=== PATIENT | female | born 2000 | race Caucasian/White ===

== ENCOUNTER 2021-08-19 16:07 | Inpatient (IN) | payer OTHER, MEDICAID, SELFPAY ==
[2021-08-19 16:16] VITALS: BP 130/82; PULSE 102; O2SAT 97
[2021-08-19 16:17] VITALS: BP 131/81; PULSE 94; RESP 16; TEMP 36.6; O2SAT 99; BMI 31.1
--- NOTE | 2021-08-19 16:22 | ED_ITS ---
HPI - Psych General Chief Complaint: Psychiatric Symptoms Stated Complaint: Section 12 SI Time Seen by Provider: 08/19/21 16:16 Source: EMS Mode of arrival: EMS Limitations: no limitations History of Present Illness HPI Narrative: 20 yo M to F transgender presented c/o depression,denies SI to me, I am been depressed all my life complaint: feels depressed Duration: constant History of same: Yes Relieving factors: none Exacerbating factors: none Associated symptoms: denies other symptoms Related Data Home Medications Medication Instructions Recorded Confirmed hydroxyzine HCl 10 mg tablet See Rx Instructions .Route 08/19/21 08/19/21 .COMPLEX PRN Anxiety oxcarbazepine 300 mg tablet 300 mg PO BEDTIME 08/19/21 08/19/21 prazosin 1 mg capsule 1 mg PO BEDTIME PRN Hypertension 08/19/21 08/19/21 Allergies Allergy/AdvReac Type Severity Reaction Status Date / Time peanut Allergy Severe Anaphylaxis Verified 08/19/21 16:17 Review of Systems Review of Systems: Yes all other systems are reviewed and are negative Constitutional: Constitutional: Reports no additional constitutional complaints Eyes: Eyes: Reports no additional eye complaints ENT: Reports system reviewed and no additional complaints, except as documented Respiratory: Respiratory: Reports no additional respiratory complaints Neurologic: Reports system reviewed and no additional complaints, except as documented Psychiatric: Psychiatric: Reports anxiety and Reports depression [facility] Past Medical History [facility] Narrative: depression Social History Social History Advance Directives: No Advance Directives Information Provided: No Physical Exam Vital Signs: Vital Signs: Last Vital Signs Temp 97.6 F 08/19/21 23:34 Pulse 55 08/19/21 23:34 Resp 16 08/19/21 23:34 BP 108/65 08/19/21 23:34 Pulse Ox 98 08/19/21 23:34 O2 Del Method 08/19/21 23:34 BMI result Body Mass Index 31.1 Const: General: cooperative, comfortable, no acute distress, well developed and alert Nutritional Appearance: average body habitus Orientation/consciousness: patient oriented x3 Limitations: no limitations HEENT: Head: Yes normal to inspection General nose exam: Normal external nose present Face and sinus: Yes normal facial exam Mouth: Normal oral and palatal mucosa present Throat: Yes posterior oropharynx normal Neck: Neck: Yes normal visual inspection, Yes full ROM and Yes no lymphadenopathy Thyroid: Thyroid normal Chest: Chest palpation & inspection: normal inspection of the chest Resp: Effort & Inspection: normal respiratory effort Auscultation: clear to auscultation bilaterally Cardio: Jugular venous distension: no JVD Rate: regular rate Rhythm: regular rhythm GI: Inspection: Yes normal to inspection Palpation (GI): Soft to palpation, not firm, nontender and no guarding Percussion: Yes normal to percussion Auscultation: normal bowel sounds : General: Yes no CVA tenderness Back/Spine/Pelvis: Back: no CVA tenderness Skin: General skin exam: no rashes or lesions noted, elasticity normal and turgor normal Lesions: no lesions Rashes: no rashes Neuro: General: patient oriented x3 Cranial nerves: Yes CN's II-XII intact bilaterally Cognition (Neuro): normal cognition Gait exam (Neuro): Normal gait present Motor exam (neuro): 5/5 motor strength present throughout Course Reevaluation(s) Reevaluation #1: signed out to Dr Salvador,bed search MDM - Psych Lab Data Result diagrams: 08/19/21 17:45 08/19/21 17:45 Labs: Lab Results 08/19/21 08/19/21 08/19/21 Range/Units 16:58 17:10 17:45 WBC 7.6 (4.8-10.8) X10*3/uL RBC 5.01 (4.20-5.50) X10*6/uL Hgb 13.3 (12.0-16.0) g/dl Hct 41.0 (37.0-47.0) % MCV 81.8 (80.0-98.0) fL MCH 26.5 L (27.0-33.0) pg MCHC 32.4 (31.0-35.0) g/dl RDW 12.6 (11.0-16.0) % Plt Count 349 (160-400) X10*3/uL MPV 8.8 L (9.4-12.3) fL Immature Gran % (Auto) 0.3 (0.0-0.4) % Neut % (Auto) 55.6 (45-73) % Lymph % (Auto) 35.5 (20-40) % [place] % (Auto) 7.1 (2-11) % Eos % (Auto) 1.0 (0-4) % Baso % (Auto) 0.5 (0-2) % Lymph # (Auto) 2.7 (1.2-4.9) X10*3/uL [place] # (Auto) 0.5 (0.1-1.2) X10*3/uL Eos # (Auto) 0.1 (0.0-0.4) X10*3/uL Baso # (Auto) 0.0 (0.0-0.2) X10*3/uL Abs Immat Gran (auto) 0.02 (0.00-0.03) X10*3/uL Absolute Neuts (auto) 4.3 (2.0-8.3) x10*3/uL Absolute Nucleated RBC 0.000 (0.0-0.012) X10*3/uL Nucleated RBC % (auto) 0.0 (0.0-0.2) /100WBC Sodium (135-145) mmol/L Potassium (3.3-5.1) mmol/L Chloride (96-108) mmol/L Carbon Dioxide (22-29) mmol/L Anion Gap (12-20) BUN (9-16) mg/dL Creatinine (0.5-1.4) mg/dL Estim Creat Clear Calc Estimated GFR Random Glucose (60-115) mg/dL Calcium (8.4-10.2) mg/dL Urine Opiates Screen Not Detected (Not Detect) Urine Fentanyl Screen Not Detected (Not Detect) Ur Barbiturates Screen Not Detected (Not Detect) Ur Phencyclidine Scrn Not Detected (Not Detect) Ur Amphetamines Screen Not Detected (Not Detect) U Benzodiazepines Scrn Not Detected (Not Detect) Urine Cocaine Screen Not Detected (Not Detect) U Marijuana (THC) Screen Not Detected (Not Detect) Ethyl Alcohol mg/dL COVID-19 (ELISA) Negative (Negative) COVID-19 Clin Com See Note 08/19/21 08/19/21 Range/Units 17:45 17:45 WBC (4.8-10.8) X10*3/uL RBC (4.20-5.50) X10*6/uL Hgb (12.0-16.0) g/dl Hct (37.0-47.0) % MCV (80.0-98.0) fL MCH (27.0-33.0) pg MCHC (31.0-35.0) g/dl RDW (11.0-16.0) % Plt Count (160-400) X10*3/uL MPV (9.4-12.3) fL Immature Gran % (Auto) (0.0-0.4) % Neut % (Auto) (45-73) % Lymph % (Auto) (20-40) % [place] % (Auto) (2-11) % Eos % (Auto) (0-4) % Baso % (Auto) (0-2) % Lymph # (Auto) (1.2-4.9) X10*3/uL [place] # (Auto) (0.1-1.2) X10*3/uL Eos # (Auto) (0.0-0.4) X10*3/uL Baso # (Auto) (0.0-0.2) X10*3/uL Abs Immat Gran (auto) (0.00-0.03) X10*3/uL Absolute Neuts (auto) (2.0-8.3) x10*3/uL Absolute Nucleated RBC (0.0-0.012) X10*3/uL Nucleated RBC % (auto) (0.0-0.2) /100WBC Sodium 139 (135-145) mmol/L Potassium 4.0 (3.3-5.1) mmol/L Chloride 105 (96-108) mmol/L Carbon Dioxide 24 (22-29) mmol/L Anion Gap 14 (12-20) BUN 9 (9-16) mg/dL Creatinine 0.77 (0.5-1.4) mg/dL Estim Creat Clear Calc 106.0 Estimated GFR > 60 Random Glucose 85 (60-115) mg/dL Calcium 9.4 (8.4-10.2) mg/dL Urine Opiates Screen (Not Detect) Urine Fentanyl Screen (Not Detect) Ur Barbiturates Screen (Not Detect) Ur Phencyclidine Scrn (Not Detect) Ur Amphetamines Screen (Not Detect) U Benzodiazepines Scrn (Not Detect) Urine Cocaine Screen (Not Detect) U Marijuana (THC) Screen (Not Detect) Ethyl Alcohol < 10 mg/dL COVID-19 (ELISA) (Negative) COVID-19 Clin Com Discharge Plan Discharge Clinical Impression: Depression Prescriptions: No Action prazosin 1 mg Capsule 1 mg PO BEDTIME PRN (Reason: Hypertension) oxcarbazepine 300 mg Tablet 300 mg PO BEDTIME hydroxyzine HCl 10 mg Tablet See Rx Instructions .ROUTE .COMPLEX PRN (Reason: Anxiety) Rx Instructions: Give 1/2 to 1 tablet (5 to 10mg) by mouth 3 times daily as needed for anxiety.
--- NOTE | 2021-08-19 16:48 | PC.NURSE ---
Changeover completed with security at bedside. Pt identifies using they/them pronouns, with preferred name: Erich . Pt asked to wear silicone breasts underneath their sports bra, and if possible, to keep their stuffed animal giraffe for comfort. Spoke with Junaid De Paz (therapeutic assistant) regarding this request. Pt agreed to have items examined, but can keep these two items in the room with them for comfort and gender identity. Pt prefers female staff whenever possible. Pt is calm/cooperative. Arrived to ED today with SI, self-harm yesterday by cutting themselves and was seen by a nurse. [facility] Admits SI, denies HI. Denies plan at this time, but has had past attempts. Ky's partner's name is Charan . spoke with patient upon arrival.
[2021-08-19 17:31] LABS: COVID-19 Test Negative (Negative); IDNOW Serial# 16C4AD1C
[2021-08-19 17:31] LABS: Amphetamine Screen Urine Not Detected (Not Detect); Barbiturates, Urine Not Detected (Not Detect); Benzodiazepines Screen Urine Not Detected (Not Detect); Cannabinoid Screen Urine Not Detected (Not Detect); Cocaine Screen Urine Not Detected (Not Detect); Fentanyl, urine Not Detected (Not Detect); Opiate Screen Urine Not Detected (Not Detect); Phencyclidine Screen Urine Not Detected (Not Detect)
[2021-08-19 17:51] LABS: MANUAL DIFF FLAG NO
[2021-08-19 17:58] LABS: Basophils Percent Auto 0.5 % (0-2); Eosinophils Absolute Auto 0.1 X10*3/uL (0.0-0.4); Hemoglobin 13.3 g/dl (12.0-16.0); Imm Gran Abs Auto 0.02 X10*3/uL (0.00-0.03); Imm Gran Pct Auto 0.3 % (0.0-0.4); Lymphocytes Absolute Auto 2.7 X10*3/uL (1.2-4.9); Lymphocytes Percent Auto 35.5 % (20-40); Mean Corpuscular HGB Conc 32.4 g/dl (31.0-35.0); Mean Corpuscular Hemoglobin 26.5 pg (27.0-33.0); Mean Corpuscular Volume 81.8 fL (80.0-98.0); Mean Platelet Volume 8.8 fL (9.4-12.3); Monocytes Absolute Auto 0.5 X10*3/uL (0.1-1.2); Monocytes Percent Auto 7.1 % (2-11); Neutrophils Absolute Auto 4.3 x10*3/uL (2.0-8.3); Neutrophils Percent Auto 55.6 % (45-73); Platelet Count 349 X10*3/uL (160-400); Red Blood Count 5.01 X10*6/uL (4.20-5.50); Red Cell Distribution Width 12.6 % (11.0-16.0); White Blood Count 7.6 X10*3/uL (4.8-10.8)
[2021-08-19 18:08] LABS: Ethanol < 10 mg/dL
[2021-08-19 18:09] LABS: Anion Gap 14 (12-20); Blood Urea Nitrogen 9 mg/dL (9-16); Calcium 9.4 mg/dL (8.4-10.2); Carbon Dioxide 24 mmol/L (22-29); Chloride 105 mmol/L (96-108); Estimated Glomerular Filt Rate > 60; Glucose Random 85 mg/dL (60-115); Sodium 139 mmol/L (135-145)
[2021-08-19] MEDS: Prazosin HCL 1 MG CAPSULE PO (23:33)
[2021-08-19] MEDS: OXcarbazepine 300 MG TABLET PO (23:33)
[2021-08-19] MEDS: hydrOXYzine HCL 10 MG TABLET PO (23:33)
[2021-08-19 23:34] VITALS: BP 108/65; PULSE 55; RESP 16; TEMP 36.4; O2SAT 98
--- NOTE | 2021-08-20 05:08 | PC.NURSE ---
Patient slept though the night, no distress observed/reported, disposition per [facility] is section 12 inpatient bed search, VSS, medication compliant, behavior non concerning, will continue to monitor.
--- NOTE | 2021-08-20 07:09 | PC.NURSE ---
patient appears to remain asleep at present respirations are even and unlabored patient appears in no distress
--- NOTE | 2021-08-20 13:02 | MHC.CARE ---
CARE team met with the pt at the request of the pod nurse to offer support and answer any questions and concerns that the pt may have. They expressed their discomfort with the bathrooms not locking. This proposal writer described what they can expect once they're admitted to the unit, such as being in a private room with their own bathroom with a toilet and sink, and the showers in the main milieu of the unit that are under continuous monitoring by staff. They also asked if they are able to have their activity books and markers, and if they will be able to keep their engagement ring on. This proposal writer advised the pt that anything valuable should be secured either in their belongings or in the safe located in the hospital's security office. Items such as books and markers are accessible to the pt either by a personal bin kept in the nurses station or in the pt's room if appropriate. The pt's previous inpatient psychiatric admission experiences were discussed, identifying what was uncomfortable or distressing for them. This proposal writer encouraged the pt to discuss this with their treatment team once they're on the unit in order to ensure that the admission is not counterproductive. The CV was reviewed and signed by the pt and this proposal writer and has been placed in their ED chart.
--- NOTE | 2021-08-20 17:11 | PC.NURSE ---
Orders in-first call for report.
[2021-08-20 19:04] VITALS: BMI 28.7
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
[2021-08-20] MEDS: OXcarbazepine 300 MG TABLET PO (20:17)
[2021-08-20] MEDS: hydrOXYzine HCL 10 MG TABLET PO (20:17)
[2021-08-20] MEDS: polyethylene glycoL 3350 17 GM POWD.PACK PO (20:18)
[2021-08-20] MEDS: traZODone HCL 50 MG TABLET PO (20:18)
[2021-08-20] MEDS: Prazosin HCL 1 MG CAPSULE PO (20:18)
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
[2021-08-21 06:00] VITALS: BP 119/64; PULSE 68; TEMP 36.6; O2SAT 97
[2021-08-21 07:40] LABS: Cholesterol 188 mg/dL; Estimated Average Glucose 100 mg/dL; HDL Cholesterol 36 mg/dL; Hemoglobin A1c % 5.1 %; LDL Cholesterol Calculated 138 mg/dl; Magnesium 1.9 mg/dL (1.6-2.6); Triglycerides 73 mg/dL
[2021-08-21 08:02] LABS: Free T4 (Free Thyroxine) 1.01 ng/dL (0.71-1.85); Thyroid Stimulating Hormone 1.27 uIU/mL (0.32-4.0)
[2021-08-21] MEDS: hydrOXYzine HCL 10 MG TABLET PO ×3 (09:27→15:53)
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
[2021-08-21] MEDS: traZODone HCL 50 MG TABLET PO (19:25)
[2021-08-21] MEDS: polyethylene glycoL 3350 17 GM POWD.PACK PO (19:25)
[2021-08-21] MEDS: OXcarbazepine 300 MG TABLET PO (19:25)
[2021-08-21] MEDS: Prazosin HCL 1 MG CAPSULE PO (19:26)
[2021-08-21 20:51] VITALS: BP 119/78; PULSE 86; RESP 16; TEMP 36.4; O2SAT 99
[2021-08-22 06:00] VITALS: BP 115/56; PULSE 68; TEMP 36.6; O2SAT 97
[2021-08-22] MEDS: hydrOXYzine HCL 10 MG TABLET PO ×3 (09:15→16:05)
[2021-08-22 18:00] VITALS: BP 109/76; PULSE 78; RESP 16; TEMP 36.6; O2SAT 98
--- NOTE | 2021-08-22 18:05 | HO.PSYCHPN ---
Subjective Subjective Date of Service: 08/22/21 Reason For Visit: Depression Interim History: In the milieu more, brighter affect and more social. Patient however reports increased urges to self-harm however still feels able to stay safe. Patient says trying to push through it and will reach out to staff if unable to. Patient shared about history of self-harm and that it relieves some stress and gives patient a break from wanted thoughts. However patient does not want to do this for the rest of patient's life and wants to find other ways to cope so has some ambivalence about scratching. Patient also feels that when told not allowed to scratch, makes patient want to scratch although more. Wire Frame Lampshade Maker discussed how important choices and empathy eyes with patient's situation. Patient is going to make a list categorizing the things patient feels patient has control over, does not have control over and some control over... As a self reflective exercise Mental Status Exam Mental Status Exam Narrative: A&O. Well groomed, good hygiene, normal body habitus, in casual cloths, well groomed, nose ring, wearing face mask due to pandemic. Good eye contact, attentive. No Tics or Tremors. No abnormal involuntary movements. Calm, cooperative, engaged. Non-pressured speech, spontaneous with regular rate and rhythm, soft spoken. No prolonged speech latency or dysarthria. Mood is ?anxious,? affect is sometimes calm, sometimes anxious; Endorses passive wish but No plans/intent to for SI; Has urges to self-harm (scratch) but trying to resist and no current plan/intent; No HI; Denies A/VH or delusional thought content. Thoughts are coherent, organized. No known cognitive or memory impairment. Insight/ Judgment impaired. Diagnostics Vital Signs (24Hr): Vital Signs - 24 hr 08/21/21 20:51 08/22/21 06:00 Temperature 97.6 F 97.9 F Pulse Rate 86 68 Respiratory Rate 16 Blood Pressure 119/78 115/56 L Pulse Oximetry 99 97 Oxygen Delivery Method Room Air Room Air BMI result Body Mass Index 28.7 Labs Results: 08/19/21 17:45 08/23/21 07:58 Labs: Laboratory Results - last 48 hr 08/21/21 08/21/21 06:56 06:56 Estimat Average Glucose 100 Hemoglobin A1c % 5.1 Magnesium 1.9 Triglycerides 73 Cholesterol 188 LDL Cholesterol, Calc 138 HDL Cholesterol 36 TSH 1.27 Free T4 1.01 Medications Medications Current Medications Acetaminophen (Acetaminophen 325 Mg Tablet) 650 mg PO Q6H PRN PRN Reason: Headache/Pain Mild Scale (1-3) Al Hydroxide/Mg Hydroxide (Magnesium Hydrox/Alum Hydrox 30 Ml Oral.Susp) 30 ml PO Q6H PRN PRN Reason: Heartburn/Nausea Hydroxyzine HCl (Hydroxyzine Hcl 10 Mg Tablet) 10 mg PO TID[facility] Last Admin: 08/22/21 16:05 Dose: 10 mg Magnesium Hydroxide (Milk Of Magnesia 30 Ml Oral.Susp) 30 ml PO DAILY PRN PRN Reason: Constipation Oxcarbazepine (Oxcarbazepine 300 Mg Tablet) 300 mg PO BEDTIME [facility] Last Admin: 08/21/21 19:25 Dose: 300 mg Polyethylene Glycol (Polyethylene Glycol 3350 17 Gm Powd.Pack) 17 gm PO BID [facility] Last Admin: 08/22/21 09:15 Dose: Not Given Prazosin HCl (Prazosin Hcl 1 Mg Capsule) 1 mg PO BEDTIME [facility]; Protocol Last Admin: 08/21/21 19:26 Dose: 1 mg Trazodone HCl (Trazodone Hcl 50 Mg Tablet) 50 mg PO BEDTIME PRN PRN Reason: Insomnia Trazodone HCl (Trazodone Hcl 50 Mg Tablet) 50 mg PO BEDTIME [facility] Last Admin: 08/21/21 19:25 Dose: 50 mg Allergies Allergies Allergy/AdvReac Type Severity Reaction Status Date / Time peanut Allergy Severe Anaphylaxis Verified 08/19/21 16:17 Assessment & Plan Assessment & Plan (1) Borderline personality disorder: Status: Acute Code(s): F60.3 - Borderline personality disorder (2) MDD (major depressive disorder), recurrent episode, moderate: Status: Acute Code(s): F33.1 - Major depressive disorder, recurrent, moderate (3) Post traumatic stress disorder (PTSD): Status: Acute Code(s): F43.10 - Post-traumatic stress disorder, unspecified Plan Pt is a 20 y.o. Non-binary person, preferred name is Juancarlos, preferred pronouns are they/them. They carry a diagnosis of PTSD, MDD recurrent, r/o BPD. Pt was recently admitted to [facility] on 08/16/21, however crisis was called and they were sent [place] [facility] [place] due to superficially self harming on the unit (via scratching skin, did not require medical attention). Pt is endorsing chronic passive SI with plan to cut their wrists. Precipitating factors include stress at work and relationship problems.?Hx of IPLOC for SA by hanging, hx of self harm. Has OP psych services at [facility]. Pt is asking for evaluation and treatment of ADHD sx, interested in being referred to DBT groups and finding a trans competent psych provider. 08/21 remains depressed and with strong urges to self-harm however able to keep safe; will alert staff if otherwise. Tolerating Trileptal agrees to increase. Discussed possibility of lithium given chronic suicidality 08/22 still depressed though more social in milieu; still strong urges to self-harm but able to stay safe. Will alert staff if otherwise. Engaged in therapy. Plan: Trial of trileptal 300 mg HS, consider titrating otherwise consider lithium or Lamictal hydroxyzine 5-10 mg TID PRN, prazosin 1 mg HS PRN, and trazodone 50 mg HS PRN. Pt is requesting Miralax PRN for constipation. Q15 min safety checks, CV Monitor response to medications. Monitor for safety in the milieu. Discharge on stabilization. Patient seen. Chart reviewed. Discussed with team. Obtain collateral contact info?as needed I spent minutes with the patient and/or on the patient floor today, greater than?50% of which was spent counseling/coordinating care. Patient educated on: diagnosis and therapeutic strategies Informed Consent: understands Reason for contiued inpatient stay Substantial Risk for: harm to self
[2021-08-22] MEDS: Prazosin HCL 1 MG CAPSULE PO (20:11)
[2021-08-22] MEDS: traZODone HCL 50 MG TABLET PO (20:11)
[2021-08-22] MEDS: OXcarbazepine 300 MG TABLET PO (20:11)
[2021-08-22] MEDS: polyethylene glycoL 3350 17 GM POWD.PACK PO (20:12)
[2021-08-23 08:14] LABS: Folate 10.7 ng/mL (> or = 4.0); Vitamin B12 242 pg/mL (200-900)
[2021-08-23 08:48] LABS: Anion Gap 11 (12-20); Carbon Dioxide 25 mmol/L (22-29); Chloride 106 mmol/L (96-108); Potassium 4.1 mmol/L (3.3-5.1); Sodium 138 mmol/L (135-145)
[2021-08-23] MEDS: hydrOXYzine HCL 10 MG TABLET PO ×3 (08:48→17:09)
[2021-08-23 08:49] VITALS: BP 126/75; PULSE 103; RESP 18; TEMP 36.3
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
[2021-08-23] MEDS: Sertraline HCL 25 MG TABLET PO (17:09)
[2021-08-23 20:55] VITALS: BP 118/78; PULSE 89; RESP 16; TEMP 36.7; O2SAT 98
[2021-08-23] MEDS: OXcarbazepine 300 MG TABLET PO (21:04)
[2021-08-23] MEDS: traZODone HCL 50 MG TABLET PO (21:04)
[2021-08-23] MEDS: Prazosin HCL 1 MG CAPSULE PO (21:04)
[2021-08-23] MEDS: Bacitracin Oint 14 GM TUBE 1 APPL TOPICAL (21:04)
[2021-08-24] MEDS: Sertraline HCL 50 MG TABLET PO (09:10)
[2021-08-24] MEDS: hydrOXYzine HCL 10 MG TABLET PO ×3 (09:10→16:55)
--- NOTE | 2021-08-24 09:50 | HO.PSYCHPN ---
Subjective Subjective Date of Service: 08/24/21 Reason For Visit: Depression Interim History: Patient feeling better today and denies any urges to self-harm. Patient said upon reflection i'm starting to realize that my past trauma has a bigger hold on me than I realized. Patient's outpatient therapist has referred them to [facility] [place] and patient is seriously considering. Patient also said they are tired of thinking about themselves and negative terms. Patient asked about getting onto Lamictal instead of Trileptal; health technical writer reviewed risks/side effects of this medication including Damon Goyal's and patient ask questions and understood and wants to switch from Lamictal and get off Trileptal. They also agreed to continue titrating Zoloft. Mental Status Exam Mental Status Exam Narrative: A&O. Well groomed, good hygiene, normal body habitus, in casual cloths, nose ring. Good eye contact, attentive. No Tics or Tremors. No abnormal involuntary movements. Calm, cooperative, engaged. Non-pressured speech, spontaneous with regular rate and rhythm, soft spoken. No prolonged speech latency or dysarthria. Mood is ?better,? affect is sometimes calm, sometimes anxious; Thought content of working on overcoming trauma; Endorses passive wish but less; no active SI; no HI; does not have urge to self-harm; Denies A/VH or delusional thought content. Thoughts are coherent, organized. No known cognitive or memory impairment. Insight/ Judgment impaired but improving. Diagnostics Vital Signs (24Hr): Vital Signs - 24 hr 08/23/21 20:55 Temperature 98.0 F Pulse Rate 89 Respiratory Rate 16 Blood Pressure 118/78 Pulse Oximetry 98 Oxygen Delivery Method Room Air BMI result Body Mass Index 28.7 Labs Results: 08/19/21 17:45 08/23/21 07:58 Labs: Laboratory Results - last 48 hr 08/21/21 08/23/21 06:55 07:58 Sodium 138 Potassium 4.1 Chloride 106 Carbon Dioxide 25 Anion Gap 11 L Vitamin B12 242 Folate 10.7 Medications Medications Current Medications Acetaminophen (Acetaminophen 325 Mg Tablet) 650 mg PO Q6H PRN PRN Reason: Headache/Pain Mild Scale (1-3) Al Hydroxide/Mg Hydroxide (Magnesium Hydrox/Alum Hydrox 30 Ml Oral.Susp) 30 ml PO Q6H PRN PRN Reason: Heartburn/Nausea Bacitracin (Bacitracin Oint 14 Gm Tube) 1 appl TOPICAL BID PRN PRN Reason: superficial excoriation Last Admin: 08/23/21 21:04 Dose: 1 appl Hydroxyzine HCl (Hydroxyzine Hcl 10 Mg Tablet) 10 mg PO TIDWM [facility] Last Admin: 08/24/21 09:10 Dose: 10 mg Magnesium Hydroxide (Milk Of Magnesia 30 Ml Oral.Susp) 30 ml PO DAILY PRN PRN Reason: Constipation Oxcarbazepine (Oxcarbazepine 300 Mg Tablet) 300 mg PO BEDTIME [facility] Last Admin: 08/23/21 21:04 Dose: 300 mg Polyethylene Glycol (Polyethylene Glycol 3350 17 Gm Powd.Pack) 17 gm PO BID [facility] Last Admin: 08/24/21 09:11 Dose: Not Given Prazosin HCl (Prazosin Hcl 1 Mg Capsule) 1 mg PO BEDTIME [facility]; Protocol Last Admin: 08/23/21 21:04 Dose: 1 mg Sertraline HCl (Sertraline Hcl 50 Mg Tablet) 50 mg PO DAILY [facility] Last Admin: 08/24/21 09:10 Dose: 50 mg Trazodone HCl (Trazodone Hcl 50 Mg Tablet) 50 mg PO BEDTIME PRN PRN Reason: Insomnia Trazodone HCl (Trazodone Hcl 50 Mg Tablet) 50 mg PO BEDTIME [facility] Last Admin: 08/23/21 21:04 Dose: 50 mg Allergies Allergies Allergy/AdvReac Type Severity Reaction Status Date / Time peanut Allergy Severe Anaphylaxis Verified 08/19/21 16:17 Assessment & Plan Assessment & Plan (1) MDD (major depressive disorder), recurrent episode, moderate: Status: Acute Code(s): F33.1 - Major depressive disorder, recurrent, moderate (2) Post traumatic stress disorder (PTSD): Status: Acute Code(s): F43.10 - Post-traumatic stress disorder, unspecified (3) Borderline personality disorder: Status: Acute Code(s): F60.3 - Borderline personality disorder Plan Pt is a 20 y.o. Non-binary person, preferred name is Juancarlos, preferred pronouns are they/them. They carry a diagnosis of PTSD, MDD recurrent, r/o BPD. Pt was [facility]pite on 08/16/21, however crisis was called and they were sent to [facility] on 08/19 due to superficially self harming on the unit (via scratching skin, did not require medical attention). Pt is endorsing chronic passive SI with plan to cut their wrists. Precipitating factors include stress at work and relationship problems.?Hx of IPLOC for SA by hanging, hx of self harm. Has OP psych services at [facility]. Pt is asking for evaluation and treatment of ADHD sx, interested in being referred to DBT groups and finding a trans competent psych provider. 08/21 remains depressed and with strong urges to self-harm however able to keep safe; will alert staff if otherwise. Tolerating Trileptal agrees to increase. Discussed possibility of lithium given chronic suicidality 08/22 still depressed though more social in milieu; still strong urges to self-harm but able to stay safe. Will alert staff if otherwise. Engaged in therapy. 08/23 Intense urges to self-harm triggered by interactions; patient open to therapeutic intervention and CBT exercise. Struggles to differentiate between which thoughts are true and which are learned lies about himself; however able to reach out for help and resist self-harm. Patient can stay on 5 minute checks. Will further review medication once patient has a chance to calm down 08/24 doing better; coping well and no urges to self-harm; wants to change medications and start Lamictal and increase Zoloft; health technical writer reviewed risks/side effects and patient understands and agrees Plan: Q 5 minute checks for safety Increased Zoloft to 75 mg Discontinue trileptal 300 mg; started a month ago and patient has not notice much benefit Start Lamictal 25 mg daily hydroxyzine 5-10 mg TID PRN, prazosin 1 mg HS PRN, and trazodone 50 mg HS PRN. Pt is requesting Miralax PRN for constipation. Q15 min safety checks, CV Monitor response to medications. Monitor for safety in the milieu. Discharge on stabilization. Patient seen. Chart reviewed. Discussed with team. Obtain collateral contact info?as needed I spent minutes with the patient and/or on the patient floor today, greater than?50% of which was spent counseling/coordinating care. Patient educated on: diagnosis, medication risk/benefits, substance abuse and therapeutic strategies Informed Consent: understands Reason for contiued inpatient stay Substantial Risk for: stable for discharge (heading here)
[2021-08-24] MEDS: Throat Lozenge, Medicated LOZENGE 1 LOZENGE MUCOUS MEM (16:55)
[2021-08-24 18:00] VITALS: BP 121/77; PULSE 73
[2021-08-24] MEDS: Prazosin HCL 1 MG CAPSULE PO (20:08)
[2021-08-24] MEDS: lamoTRIgine 25 MG TABLET PO (20:08)
[2021-08-24] MEDS: OXcarbazepine 300 MG TABLET PO (20:08)
[2021-08-24] MEDS: traZODone HCL 50 MG TABLET PO (21:05)
[2021-08-25 06:00] VITALS: BP 109/51; PULSE 71; TEMP 36.6; O2SAT 96
[2021-08-25] MEDS: hydrOXYzine HCL 10 MG TABLET PO ×3 (08:15→16:34)
[2021-08-25] MEDS: Sertraline HCL 25 MG TABLET 75 MG PO (08:15)
[2021-08-25] MEDS: lamoTRIgine 25 MG TABLET PO (08:16)
--- NOTE | 2021-08-25 10:40 | HO.PSYCHPN ---
Subjective Subjective Date of Service: 08/25/21 Reason For Visit: Depression Interim History: Feels better today no urges to self-harm. No passive wish and remains more hopeful. Did CBT exercise and patient is coming to terms with the need to he wrecked boundaries with family. Some ambivalence about discharge wondering if ready. Considering PTSD treatment program post discharge. [facility] screen for ADD and patient has history with multiple symptoms. Will give trial of Adderall. [facility] discussed that this may not be continued as outpatient and that anxiety and depression, which patient is had since an adolescent, can also cause some ADD like symptoms. Mental Status Exam Mental Status Exam Narrative: A&O. Well groomed, good hygiene, normal body habitus, in casual cloths, nose ring. Good eye contact, attentive. No Tics or Tremors. No abnormal involuntary movements. Calm, cooperative, engaged. Non-pressured speech, spontaneous with regular rate and rhythm, soft spoken. No prolonged speech latency or dysarthria. Mood is ?better today,? affect is calm, bright; Thought content of working on overcoming trauma; denies passive wish; no active SI; no HI; does not have urge to self-harm; Denies A/VH or delusional thought content. Thoughts are coherent, organized. No known cognitive or memory impairment. Insight/ Judgment fair. Diagnostics Vital Signs (24Hr): Vital Signs - 24 hr 08/24/21 18:00 08/25/21 06:00 Temperature 97.8 F Pulse Rate 73 71 Blood Pressure 121/77 109/51 L Pulse Oximetry 96 Oxygen Delivery Method Room Air BMI result Body Mass Index 28.7 Labs Results: 08/19/21 17:45 08/23/21 07:58 Medications Medications Current Medications Acetaminophen (Acetaminophen 325 Mg Tablet) 650 mg PO Q6H PRN PRN Reason: Headache/Pain Mild Scale (1-3) Al Hydroxide/Mg Hydroxide (Magnesium Hydrox/Alum Hydrox 30 Ml Oral.Susp) 30 ml PO Q6H PRN PRN Reason: Heartburn/Nausea Bacitracin (Bacitracin Oint 14 Gm Tube) 1 appl TOPICAL BID PRN PRN Reason: superficial excoriation Last Admin: 08/23/21 21:04 Dose: 1 appl Benzocaine (Throat Lozenge, Medicated Lozenge) 1 lozenge MUCOUS MEM Q2H PRN PRN Reason: Sore Throat Last Admin: 08/24/21 16:55 Dose: 1 lozenge Hydroxyzine HCl (Hydroxyzine Hcl 10 Mg Tablet) 10 mg PO TIDWM [facility] Last Admin: 08/25/21 08:15 Dose: 10 mg Lamotrigine (Lamotrigine 25 Mg Tablet) 25 mg PO DAILY [facility] Last Admin: 08/25/21 08:16 Dose: 25 mg Magnesium Hydroxide (Milk Of Magnesia 30 Ml Oral.Susp) 30 ml PO DAILY PRN PRN Reason: Constipation Polyethylene Glycol (Polyethylene Glycol 3350 17 Gm Powd.Pack) 17 gm PO BID [facility] Last Admin: 08/25/21 08:18 Dose: Not Given Prazosin HCl (Prazosin Hcl 1 Mg Capsule) 1 mg PO BEDTIME [facility]; Protocol Last Admin: 08/24/21 20:08 Dose: 1 mg Sertraline HCl (Sertraline Hcl 25 Mg Tablet) 75 mg PO DAILY [facility] Last Admin: 08/25/21 08:15 Dose: 75 mg Trazodone HCl (Trazodone Hcl 50 Mg Tablet) 50 mg PO BEDTIME PRN PRN Reason: Insomnia Trazodone HCl (Trazodone Hcl 50 Mg Tablet) 50 mg PO BEDTIME [facility] Last Admin: 08/24/21 21:05 Dose: 50 mg Allergies Allergies Allergy/AdvReac Type Severity Reaction Status Date / Time peanut Allergy Severe Anaphylaxis Verified 08/19/21 16:17 Assessment & Plan Assessment & Plan (1) MDD (major depressive disorder), recurrent episode, moderate: Status: Acute Code(s): F33.1 - Major depressive disorder, recurrent, moderate (2) Post traumatic stress disorder (PTSD): Status: Acute Code(s): F43.10 - Post-traumatic stress disorder, unspecified (3) Borderline personality disorder: Status: Acute Code(s): F60.3 - Borderline personality disorder Plan Pt is a 20 y.o. Non-binary person, preferred name is Juancarlos, preferred pronouns are they/them. They carry a diagnosis of PTSD, MDD recurrent, r/o BPD. Pt was recently [facility], however crisis was called and they were sent to [facility] ED on 08/19 due to superficially self harming on the unit (via scratching skin, did not require medical attention). Pt is endorsing chronic passive SI with plan to cut their wrists. Precipitating factors include stress at work and relationship problems.?Hx of IPLOC for SA by hanging, hx of self harm. Has OP psych services at [facility]. Pt is asking for evaluation and treatment of ADHD sx, interested in being referred to DBT groups and finding a trans competent psych provider. 08/21 remains depressed and with strong urges to self-harm however able to keep safe; will alert staff if otherwise. Tolerating Trileptal agrees to increase. Discussed possibility of lithium given chronic suicidality 08/22 still depressed though more social in milieu; still strong urges to self-harm but able to stay safe. Will alert staff if otherwise. Engaged in therapy. 08/23 Intense urges to self-harm triggered by interactions; patient open to therapeutic intervention and CBT exercise. Struggles to differentiate between which thoughts are true and which are learned lies about himself; however able to reach out for help and resist self-harm. Patient can stay on 5 minute checks. Will further review medication once patient has a chance to calm down 08/24 doing better; coping well and no urges to self-harm; wants to change medications and start Lamictal and increase Zoloft; card writer hand reviewed risks/side effects and patient understands and agrees 08/25 continues to do better, no urges to self-harm and passive wish resolved; continues to work hard in 1 1 sessions and attends groups. Screen for ADD and patient has numerous symptoms and history. Will give trial of Adderall. Discussing discharge plans Plan: Q 5 minute checks for safety Will try Adderall extended release 10 mg Increased Zoloft to 75 mg Discontinue trileptal 300 mg; started a month ago and patient has not notice much benefit Start Lamictal 25 mg daily hydroxyzine 5-10 mg TID PRN, prazosin 1 mg HS PRN, and trazodone 50 mg HS PRN. Pt is requesting Miralax PRN for constipation. Q15 min safety checks, CV Monitor response to medications. Monitor for safety in the milieu. Discharge on stabilization. Patient seen. Chart reviewed. Discussed with team. Obtain collateral contact info?as needed I spent minutes with the patient and/or on the patient floor today, greater than?50% of which was spent counseling/coordinating care. Patient educated on: diagnosis, medication risk/benefits, substance abuse and therapeutic strategies Informed Consent: understands Reason for contiued inpatient stay Substantial Risk for: stable for discharge
[2021-08-25] MEDS: Magnesium Hydrox/Alum Hydrox 30 ML ORAL.SUSP PO (11:24)
[2021-08-25 18:00] VITALS: BP 124/75; PULSE 95; RESP 16; TEMP 36.6; O2SAT 99
[2021-08-25] MEDS: Prazosin HCL 1 MG CAPSULE PO (19:56)
[2021-08-25] MEDS: traZODone HCL 50 MG TABLET PO (19:56)
[2021-08-25] MEDS: polyethylene glycoL 3350 17 GM POWD.PACK PO (19:57)
[2021-08-26 07:00] VITALS: BMI 28.9
[2021-08-26] MEDS: Dextroamphetamine/Amphetamine XR 10 MG CAP.ER.24H PO (09:27)
[2021-08-26] MEDS: lamoTRIgine 25 MG TABLET PO (09:27)
[2021-08-26] MEDS: hydrOXYzine HCL 10 MG TABLET PO ×3 (09:27→17:35)
[2021-08-26] MEDS: Sertraline HCL 25 MG TABLET 75 MG PO (09:27)
[2021-08-26 11:36] VITALS: BP 110/72; PULSE 75; RESP 16; TEMP 36.7; O2SAT 98
[2021-08-26 12:35] LABS: BV Int Neg Control Negative (Negative); BV Int Pos Control Positive (Positive)
[2021-08-26 13:42] LABS: Appearance Urine CLEAR; Color Urine YELLOW; Glucose Urine UA NEG (NEG); Leukocyte Esterase Urine NEG (NEG); Nitrite Urine NEG (NEG); PH 6.5 (5.0-8.0); Specific Gravity - Urine 1.015 (1.005-1.025); UACC Culture Trigger NO; Urine Blood 2+ (NEG); Urine Ketones NEG (NEG); Urine Protein NEG (NEG-TRACE)
[2021-08-26 13:51] LABS: Squamous Epithelial Cell Urine TRACE /LPF; WBC Urine 0 /HPF (0-4)
--- NOTE | 2021-08-26 15:24 | HO.PSYCHPN ---
Subjective Subjective Date of Service: 08/26/21 Reason For Visit: Depression Interim History: Patient reports significant decrease in anxiety having started Adderall. Patient says my brain is quiet for the 1st time... I can actually think of 1 thing at a time. Patient is impressed with there ability to focus, read and pay attention to conversations or tasks. Discussed discharge tomorrow; patient thinks they are stable, but is anxious about it; still, they agree that staying few more days will unlikely make much difference and only returning home to face the stresses of regular life, will patient be able to test there stability and if medications are adequate. Patient has therapy appointment with Sima Gonsalves next Monday and patient agrees that this will be a good opportunity to review how the weekend went. Patient denies any SI or passive wish and is hopeful about continued progress; also future oriented with plans to move into new housing with patient's partner and engage in trauma informed therapy. Mental Status Exam Mental Status Exam Narrative: A&O. Well groomed, good hygiene, normal body habitus, in casual cloths, nose ring. Good eye contact, attentive. No Tics or Tremors. No abnormal involuntary movements. Calm, cooperative, engaged. Non-pressured speech, spontaneous with regular rate and rhythm, soft spoken. No prolonged speech latency or dysarthria. Mood is ?good,? affect is calm, bright; Thought content of readiness for discharge, working on overcoming trauma; denies passive wish; no SI; no HI; no urges to self-harm; No A/VH or delusional thought content. Thoughts are coherent, organized. No known cognitive or memory impairment. Insight/ Judgment fair. Diagnostics Vital Signs (24Hr): Vital Signs - 24 hr 08/25/21 18:00 08/26/21 11:36 Temperature 97.8 F 98.1 F Pulse Rate 95 75 Respiratory Rate 16 16 Blood Pressure 124/75 110/72 Pulse Oximetry 99 98 Oxygen Delivery Method Room Air Room Air BMI result Body Mass Index 28.9 Labs Results: 08/19/21 17:45 08/23/21 07:58 Labs: Laboratory Results - last 48 hr 08/25/21 08/26/21 13:36 13:28 Urine Color YELLOW Urine Appearance CLEAR Urine pH 6.5 Ur Specific Baring 1.015 Urine Protein NEG Urine Glucose (UA) NEG Urine Ketones NEG Urine Blood 2+ H Urine Nitrite NEG Ur Leukocyte Esterase NEG Urine RBC 5-9 H Urine WBC 0 Ur Squamous Epith Cells TRACE Urine Bacteria NONE Altagracia species DNA Negative Gardnerella DNA Probe Positive A Trichomonas DNA Probe Negative Medications Medications Current Medications Acetaminophen (Acetaminophen 325 Mg Tablet) 650 mg PO Q6H PRN PRN Reason: Headache/Pain Mild Scale (1-3) Al Hydroxide/Mg Hydroxide (Magnesium Hydrox/Alum Hydrox 30 Ml Oral.Susp) 30 ml PO Q6H PRN PRN Reason: Heartburn/Nausea Last Admin: 08/25/21 11:24 Dose: 30 ml Amphetamine/Dextroamphetamine (Dextroamphetamine/Amphetamine Xr 10 Mg Cap.Er.24h) 10 mg PO DAILY [facility] Last Admin: 08/26/21 09:27 Dose: 10 mg Bacitracin (Bacitracin Oint 14 Gm Tube) 1 appl TOPICAL BID PRN PRN Reason: superficial excoriation Last Admin: 08/23/21 21:04 Dose: 1 appl Benzocaine (Throat Lozenge, Medicated Lozenge) 1 lozenge MUCOUS MEM Q2H PRN PRN Reason: Sore Throat Last Admin: 08/24/21 16:55 Dose: 1 lozenge Hydroxyzine HCl (Hydroxyzine Hcl 10 Mg Tablet) 10 mg PO TIDWM [facility] Last Admin: 08/26/21 13:42 Dose: 10 mg Lamotrigine (Lamotrigine 25 Mg Tablet) 25 mg PO DAILY [facility] Last Admin: 08/26/21 09:27 Dose: 25 mg Magnesium Hydroxide (Milk Of Magnesia 30 Ml Oral.Susp) 30 ml PO DAILY PRN PRN Reason: Constipation Metronidazole (Metronidazole 500 Mg Tablet) 500 mg PO BID [facility] Metronidazole (Metronidazole 500 Mg Tablet) 500 mg PO ONCE ONE Stop: 08/26/21 15:23 Polyethylene Glycol (Polyethylene Glycol 3350 17 Gm Powd.Pack) 17 gm PO BID [facility] Last Admin: 08/26/21 09:28 Dose: Not Given Prazosin HCl (Prazosin Hcl 1 Mg Capsule) 1 mg PO BEDTIME [facility]; Protocol Last Admin: 08/25/21 19:56 Dose: 1 mg Sertraline HCl (Sertraline Hcl 25 Mg Tablet) 75 mg PO DAILY [facility] Last Admin: 08/26/21 09:27 Dose: 75 mg Trazodone HCl (Trazodone Hcl 50 Mg Tablet) 50 mg PO BEDTIME PRN PRN Reason: Insomnia Trazodone HCl (Trazodone Hcl 50 Mg Tablet) 50 mg PO BEDTIME [facility] Last Admin: 08/25/21 19:56 Dose: 50 mg Allergies Allergies Allergy/AdvReac Type Severity Reaction Status Date / Time peanut Allergy Severe Anaphylaxis Verified 08/19/21 16:17 Assessment & Plan Assessment & Plan (1) MDD (major depressive disorder), recurrent episode, moderate: Status: Acute Code(s): F33.1 - Major depressive disorder, recurrent, moderate (2) Post traumatic stress disorder (PTSD): Status: Acute Code(s): F43.10 - Post-traumatic stress disorder, unspecified (3) Borderline personality disorder: Status: Acute Code(s): F60.3 - Borderline personality disorder Plan Pt is a 20 y.o. Non-binary person, preferred name is Juancarlos, preferred pronouns are they/them. They carry a diagnosis of PTSD, MDD recurrent, r/o BPD. Pt was recently admitted to [facility]pite on 08/16/21, however crisis was called and they were sent to [facility] on 08/19 due to superficially self harming on the unit (via scratching skin, did not require medical attention). Pt is endorsing chronic passive SI with plan to cut their wrists. Precipitating factors include stress at work and relationship problems.?Hx of IPLOC for SA by hanging, hx of self harm. Has OP psych services at [facility]. Pt is asking for evaluation and treatment of ADHD sx, Screening: Patient reports struggle to pay attention to details frequently making careless mistakes in school/work; difficulty sustaining attention when reading, listening to others and conversations or even when trying to think about something specific; mind easily distracted by thoughts; much trouble accomplishing tasks on time throughout life time; frequently losing or misplacing important items; procrastinating with any task that requires attention, frequently waiting until last minute and using this pressure to help focus; will start a task but then get distracted by something else or by another task and end up with most things being undone. 08/21 remains depressed and with strong urges to self-harm however able to keep safe; will alert staff if otherwise. Tolerating Trileptal agrees to increase. Discussed possibility of lithium given chronic suicidality 08/22 still depressed though more social in milieu; still strong urges to self-harm but able to stay safe. Will alert staff if otherwise. Engaged in therapy. 08/23 Intense urges to self-harm triggered by interactions; patient open to therapeutic intervention and CBT exercise. Struggles to differentiate between which thoughts are true and which are learned lies about himself; however able to reach out for help and resist self-harm. Patient can stay on 5 minute checks. Will further review medication once patient has a chance to calm down 08/24 doing better; coping well and no urges to self-harm; wants to change medications and start Lamictal and increase Zoloft; program writer reviewed risks/side effects and patient understands and agrees 08/25 continues to do better, no urges to self-harm and passive wish resolved; continues to work hard in 1 1 sessions and attends groups. Screen for ADD and patient has numerous symptoms and history. Will give trial of Adderall. Discussing discharge plans 08/26 very positive response to Adderall trial, feeling brain is much more able to focus and that anxiety is much less. Given patient's reported history with inattention and significant response to Adderall trial, program writer agrees to continue this medication as an outpatient; patient's anxiety is significantly less and patient feels in much better control of thoughts and actions which may very well help patient refrain from self-harming behaviors. Patient anxious about discharging home but agrees that is appropriate and they will be able to remain safe; patient also feels able to reach out for help if otherwise. Patient remains without passive wish or any SI; also sleeping well and nightmares remained resolved. Future oriented with plans for moving with partner, returning to work and continuing to engage in outpatient therapy. Patient is not in imminent risk for harm to self or others and appropriate for discharge to the community. Also discussed patient's history of intermittent binge drinking and patient agrees that this is problematic and in the way of treatment and has decided to significantly limit intake. Lab work reveals bacterial vaginosis/Gardnerella; discussed with patient agrees to start on metronidazole 500 mg b.i.d. for 7 days Plan: Q 5 minute checks for safety Added clonidine and BuSpar to try as PRNs for anxiety since Atarax makes patient tired. Adderall extended release 10 mg Increased Zoloft to 75 mg Start Lamictal 25 mg daily hydroxyzine 5-10 mg TID PRN, prazosin 1 mg HS PRN, and trazodone 50 mg HS PRN. Discontinue trileptal 300 mg; started a month ago and patient has not notice much benefit Pt is requesting Miralax PRN for constipation. Q15 min safety checks, CV Monitor response to medications. Monitor for safety in the milieu. Discharge on stabilization. Patient seen. Chart reviewed. Discussed with team. Obtain collateral contact info?as needed I spent minutes with the patient and/or on the patient floor today, greater than?50% of which was spent counseling/coordinating care. Patient educated on: diagnosis, medication risk/benefits, substance abuse and therapeutic strategies Informed Consent: understands Reason for contiued inpatient stay Substantial Risk for: stable for discharge
[2021-08-26] MEDS: busPIRone HCl 5 MG TABLET PO (16:34)
[2021-08-26] MEDS: metroNIDAZOLE 500 MG TABLET PO ×2 (16:55→21:32)
--- NOTE | 2021-08-26 19:47 | PM.PSYDC ---
DS: Providers Provider Date of Service: 08/27/21 Date of admission: 08/20/21 15:39 Date of discharge: 08/27/21 Primary care physician: Unknown Physician Admitting clinician: Loreto Vera Attending physician on discharge: Ernesto Villalobos DS: Diagnosis Discharge Diagnosis (1) MDD (major depressive disorder), recurrent episode, moderate: Status: Deleted (2) Post traumatic stress disorder (PTSD): Status: Acute (3) Borderline personality disorder: Status: Acute DS: Medications Discharge Medications Home Medications: Previous Rx's Medication Instructions Recorded dextroamphetamine-amphetamine ER 10 mg PO DAILY 30 days #30 caps 08/26/21 10 mg 24hr capsule,extend release (Adderall XR) hydroxyzine HCl 10 mg tablet See Rx Instructions .Route 08/26/21 .COMPLEX PRN Anxiety 30 days #90 tabs lamotrigine 100 mg tablet 100 mg PO DAILY 30 days #30 tabs 08/26/21 (Lamictal) lamotrigine 25 mg tablet See Rx Instructions .Route 08/26/21 .COMPLEX #39 tabs metronidazole 500 mg tablet 500 mg PO BID 6 days #11 tabs 08/26/21 prazosin 1 mg capsule 1 mg PO BEDTIME 30 days #30 caps 08/26/21 sertraline 25 mg tablet 75 mg PO DAILY 30 days #90 tabs 08/26/21 trazodone 50 mg tablet 50 mg PO BEDTIME PRN Insomnia 30 08/26/21 days #30 tabs Mental Status Exam Mental Status Exam Narrative: A&O. Well groomed, good hygiene, normal body habitus, in casual cloths, nose ring. Good eye contact, attentive. No Tics or Tremors. No abnormal involuntary movements. Calm, cooperative, engaged. Non-pressured speech, spontaneous with regular rate and rhythm, soft spoken. No prolonged speech latency or dysarthria. Mood is ?good,? affect is calm, bright; Thought content of readiness for discharge, working on overcoming trauma; denies passive wish; no SI; no HI; no urges to self-harm; No A/VH or delusional thought content. Thoughts are coherent, organized. No known cognitive or memory impairment. Insight/ Judgment fair. Patient Appearance: Appropriate Patient Orientation: Person, Place, Time and Situation Level of Consciousness: Alert Patient Behavior: Appropriate, Talkative and Good Eye Contact Mood Description: Calm Affect Description: Calm Patient Cognition Impaired: No Ability to Follow Directions: Good Speech Pattern: Spontaneous Speech Memory Description: Intact Hallucinations: None Delusions: Not Present Thought Process: Intact Thought Content: positive for Intact Judgement: Good Data Data Completed and Pending Completed studies during hospitalization [Text1]: 08/21/21 08/21/21 08/21/21 06:55 06:56 06:56 Sodium Potassium Chloride Carbon Dioxide Anion Gap Estimat Average Glucose 100 Hemoglobin A1c % 5.1 Magnesium 1.9 Triglycerides 73 Cholesterol 188 LDL Cholesterol, Calc 138 HDL Cholesterol 36 Vitamin B12 242 Folate 10.7 TSH 1.27 Free T4 1.01 Urine Color Urine Appearance Urine pH Ur Specific [place] Urine Protein Urine Glucose (UA) Urine Ketones Urine Blood Urine Nitrite Ur Leukocyte Esterase Urine RBC Urine WBC Ur Squamous Epith Cells Urine Bacteria Altagracia species DNA Gardnerella DNA Probe Trichomonas DNA Probe 08/23/21 08/25/21 08/26/21 07:58 13:36 13:28 Sodium 138 Potassium 4.1 Chloride 106 Carbon Dioxide 25 Anion Gap 11 L Estimat Average Glucose Hemoglobin A1c % Magnesium Triglycerides Cholesterol LDL Cholesterol, Calc HDL Cholesterol Vitamin B12 Folate TSH Free T4 Urine Color YELLOW Urine Appearance CLEAR Urine pH 6.5 Ur Specific [place] 1.015 Urine Protein NEG Urine Glucose (UA) NEG Urine Ketones NEG Urine Blood 2+ H Urine Nitrite NEG Ur Leukocyte Esterase NEG Urine RBC 5-9 H Urine WBC 0 Ur Squamous Epith Cells TRACE Urine Bacteria NONE Altagracia species DNA Negative Gardnerella DNA Probe Positive A Trichomonas DNA Probe Negative DS: Summary Hospital Course Hospital Course: Pt is a 20 y.o. Non-binary person, preferred name is Juancarlos, preferred pronouns are they/them. They carry a diagnosis of PTSD, MDD recurrent, r/o BPD. Pt was recently admitted to [facility]/ Respite on 08/16/21, however crisis was called and they were [place] [facility] [place] due to superficially self harming on the unit (via scratching skin, did not require medical attention). Pt is endorsing chronic passive SI with plan to cut their wrists. Precipitating factors include stress at work and relationship problems.?Hx of IPLOC for SA by hanging, hx of self harm. Has OP psych services at [facility]. ?Pt is asking for evaluation and treatment of ADHD sx, Screening: Patient reports struggle to pay attention to details frequently making careless mistakes in school/work; difficulty sustaining attention when reading, listening to others and conversations or even when trying to think about something specific; mind easily distracted by thoughts; much trouble accomplishing tasks on time throughout life time; frequently losing or misplacing important items; procrastinating with any task that requires attention, frequently waiting until last minute and using this pressure to help focus; will start a task but then get distracted by something else or by another task and end up with most things being undone. 08/21 remains depressed and with strong urges to self-harm however able to keep safe; will alert staff if otherwise.? Tolerating Trileptal agrees to increase.? Discussed possibility of lithium given chronic suicidality 08/22 still depressed though more social in milieu; still strong urges to self-harm but able to stay safe.? Will alert staff if otherwise.? Engaged in therapy. 08/23 Intense urges to self-harm triggered by interactions; patient open to therapeutic intervention and CBT exercise. Struggles to differentiate between which thoughts are true and which are learned lies about himself; however able to reach out for help and resist self-harm.? Patient can stay on 5 minute checks.? Will further review medication once patient has a chance to calm down 08/24 doing better; coping well and no urges to self-harm; wants to change medications and start Lamictal and increase Zoloft; quality analyst/technical writer reviewed risks/side effects and patient understands and agrees 08/25 continues to do better, no urges to self-harm and passive wish resolved; continues to work hard in 1 1 sessions and attends groups.? Screen for ADD and patient has numerous symptoms and history.? Will give trial of Adderall.? Discussing discharge plans 08/26 very positive response to Adderall trial, feeling brain is much more able to focus and that anxiety is much less.? Given patient's reported history with inattention and significant response to Adderall trial, quality analyst/technical writer agrees to continue this medication as an outpatient; patient's anxiety is significantly less and patient feels in much better control of thoughts and actions which may very well help patient refrain from self-harming behaviors.? Patient anxious about discharging home but agrees that is appropriate and they will be able to remain safe; patient also feels able to reach out for help if otherwise.? Patient remains without passive wish or any SI; also sleeping well and nightmares remained resolved.? Future oriented with plans for moving with partner, returning to work and continuing to engage in outpatient therapy.? Patient is not in imminent risk for harm to self or others and appropriate for discharge to the community.? Also discussed patient's history of intermittent binge drinking and patient agrees that this is problematic and in the way of treatment and has decided to significantly limit intake. Lab work reveals bacterial vaginosis/Gardnerella; discussed with patient agrees to start on metronidazole 500 mg b.i.d. for 7 days Time spent discussing smoking cessation with patient: 3 to 10 minutes Status at Discharge Functional status at discharge: independent ambulation Overall status at discharge: patient is back to baseline Time Spent with Patient Time attestation: Total time spent providing and/or coordinating discharge services: Time spent: Less than 30 minutes Discharge Plan Discharge Patient Disposition: Home, Self-Care Discharge Diagnosis: Depression, recurrent, severe w/out psychotic features, in full remission Referrals: DOUG CARDONA [Other] - 09/01/21 3:30 pm (VIRTUAL APPT.) RYAN CHRISTIAN [Other] - 08/30/21 (TELEHEALTH) [facility] [Other] - 08/31/21 9:00 am (ZOOM) Discharge Medications: New metronidazole 500 mg Tablet 500 mg PO BID 6 Days Qty: 11 0RF dextroamphetamine-amphetamine [Adderall XR] 10 mg Capsule,Extended Release 24hr 10 mg PO DAILY 30 Days Qty: 30 0RF Rx Instructions: Partial Fill upon patient request. lamotrigine 25 mg Tablet See Rx Instructions .ROUTE .COMPLEX Qty: 39 0RF Rx Instructions: Take 1 tab daily for 11 days; then take 2 tabs daily for 14 days; then orange picker script for 100 mg daily lamotrigine [Lamictal] 100 mg tablet 100 mg PO DAILY 30 Days Qty: 30 0RF Rx Instructions: start AFTER complete 2 weeks of 50mg daily sertraline 25 mg Tablet 75 mg PO DAILY 30 Days Qty: 90 1RF trazodone 50 mg Tablet 50 mg PO BEDTIME PRN (Reason: Insomnia) 30 Days Qty: 30 1RF clonidine HCl 0.1 mg tablet 0.1 mg PO BID PRN (Reason: anxiety) Qty: 14 1RF Continued hydroxyzine HCl 10 mg Tablet See Rx Instructions .ROUTE .COMPLEX PRN (Reason: Anxiety) 30 Days Qty: 90 1RF Rx Instructions: Give 1/2 to 1 tablet (5 to 10mg) by mouth 3 times daily as needed for anxiety. Changed prazosin 1 mg Capsule 1 mg PO BEDTIME 30 Days Qty: 30 1RF Discontinued oxcarbazepine 300 mg Tablet 300 mg PO BEDTIME Discharge Orders: Discharge Order (Routine); Ordered 08/27/21 Ordered By: Ernesto Villalobos Diet: Regular diet Activity on Discharge: As tolerated Stand Alone Forms: Patient Portal Discharge page, Community Support Care Plan Goals: Maintain mood and safe behaviors Take medications as prescribed Continue to pursue sobriety Practice coping skills Continue with outpatient providers and reach out to them as needed Health Concerns: Mood stability and behaviors Sobriety Plan of Treatment: Follow up with your psychiatric provider and other outpatient providers regarding above concerns Take medications as prescribed Assessment: Risk assessment at time of discharge:? Patient was interviewed prior to discharge and found to be fully oriented and without any SI or HI. Patient has insight and demonstrates good judgment in terms of wanting to pursue treatment. Patient is not in imminent risk of harm to self or others and has a safety plan that includes presenting to the closest ER or calling 911 if feeling unsafe.? Patient has been observed closely by nursing and unit staff throughout admission; patient has not engaged in any behaviors that suggest dangerousness to self or others and has demonstrated appropriate behaviors and impulse control Discharge Date/Time: 08/27/21 14:45
[2021-08-26 21:30] VITALS: BP 120/65; PULSE 81; RESP 16; TEMP 37.1
[2021-08-26] MEDS: Prazosin HCL 1 MG CAPSULE PO (21:32)
[2021-08-26] MEDS: traZODone HCL 50 MG TABLET PO (22:00)
[2021-08-27] MEDS: lamoTRIgine 25 MG TABLET PO (08:35)
[2021-08-27] MEDS: metroNIDAZOLE 500 MG TABLET PO (08:35)
[2021-08-27] MEDS: hydrOXYzine HCL 10 MG TABLET PO ×2 (08:35→12:07)
[2021-08-27] MEDS: Sertraline HCL 25 MG TABLET 75 MG PO (08:35)
[2021-08-27] MEDS: Dextroamphetamine/Amphetamine XR 10 MG CAP.ER.24H PO (08:35)
[2021-08-27 09:30] VITALS: BP 119/71; PULSE 88; RESP 18; TEMP 35.9; O2SAT 97
[2021-08-27] MEDS: cloNIDine HCL 0.1 MG TABLET PO (09:46)
--- NOTE | 2021-08-27 16:41 | P.PNPSI_ITS ---
Subjective Subjective Date of Service: 08/27/21 Reason For Visit: Depression Subjective Notes: Conditional Voluntary Healthcare Proxy: No Guardianship: No Medical Problems Affecting Mental Status: No Interim History: Pt preparing for discharge. Pt has decided that a clonidine prn will be helpful upon discharge. This was sent-information printed. Pt with no questions or concerns regarding discharge plans. Fully involved in milieu prior to discharge today and involved with peers. Medication Compliance: Yes Side effects from medications: No Attending Groups: Yes Review of Systems Acute medical concerns: No Medical Review of Systems: unchanged Mental Status Exam Mental Status Exam Patient Appearance: Appropriate Patient Orientation: Person, Place, Time and Situation Level of Consciousness: Alert Patient Behavior: Appropriate, Talkative and Good Eye Contact Mood Description: Calm Affect Description: Calm Patient Cognition Impaired: No Ability to Follow Directions: Good Speech Pattern: Spontaneous Speech Memory Description: Intact Hallucinations: None Delusions: Not Present Thought Process: Intact Thought Content: positive for Intact Judgement: Good Diagnostics Vital Signs (24Hr): Vital Signs - 24 hr 08/26/21 21:30 08/27/21 09:30 Temperature 98.8 F 96.7 F L Pulse Rate 81 88 Respiratory Rate 16 18 Blood Pressure 120/65 119/71 Pulse Oximetry 97 Oxygen Delivery Method Room Air BMI result Body Mass Index 28.9 Labs Results: 08/19/21 17:45 08/23/21 07:58 Labs: Laboratory Results - last 48 hr 08/25/21 08/26/21 13:36 13:28 Urine Color YELLOW Urine Appearance CLEAR Urine pH 6.5 Ur Specific [place] 1.015 Urine Protein NEG Urine Glucose (UA) NEG Urine Ketones NEG Urine Blood 2+ H Urine Nitrite NEG Ur Leukocyte Esterase NEG Urine RBC 5-9 H Urine WBC 0 Ur Squamous Epith Cells TRACE Urine Bacteria NONE Altagracia species DNA Negative Gardnerella DNA Probe Positive A Trichomonas DNA Probe Negative Medications Allergies Allergies Allergy/AdvReac Type Severity Reaction Status Date / Time peanut Allergy Severe Anaphylaxis Verified 08/19/21 16:17 Assessment & Plan Assessment & Plan (1) Post traumatic stress disorder (PTSD): Status: Acute Code(s): F43.10 - Post-traumatic stress disorder, unspecified (2) Borderline personality disorder: Status: Acute Code(s): F60.3 - Borderline personality disorder Plan Pt is a 20 y.o. Non-binary person, preferred name is Juancarlos, preferred pronouns are they/them. They carry a diagnosis of PTSD, MDD recurrent, r/o BPD. Pt was recently admitted to [facility]/ Respite on 08/16/21, however crisis was called and they were sent [place] [facility] [place] due to superficially self harming on the unit (via scratching skin, did not require medical attention). Pt is endorsing chronic passive SI with plan to cut their wrists. Precipitating factors include stress at work and relationship problems.?Hx of IPLOC for SA by hanging, hx of self harm. Has OP psych services at [facility]. Pt is asking for evaluation and treatment of ADHD sx, Screening: Patient reports struggle to pay attention to details frequently making careless mistakes in school/work; difficulty sustaining attention when reading, listening to others and conversations or even when trying to think about something specific; mind easily distracted by thoughts; much trouble accomplishing tasks on time throughout life time; frequently losing or misplac ing important items; procrastinating with any task that requires attention, frequently waiting until last minute and using this pressure to help focus; will start a task but then get distracted by something else or by another task and end up with most things being undone. 08/21 remains depressed and with strong urges to self-harm however able to keep safe; will alert staff if otherwise. Tolerating Trileptal agrees to increase. Discussed possibility of lithium given chronic suicidality 08/22 still depressed though more social in milieu; still strong urges to self- harm but able to stay safe. Will alert staff if otherwise. Engaged in therapy. 08/23 Intense urges to self-harm triggered by interactions; patient open to therapeutic intervention and CBT exercise. Struggles to differentiate between which thoughts are true and which are learned lies about himself; however able to reach out for help and resist self-harm. Patient can stay on 5 minute checks. Will further review medication once patient has a chance to calm down 08/24 doing better; coping well and no urges to self-harm; wants to change medications and start Lamictal and increase Zoloft; insurance writer reviewed risks/side effects and patient understands and agrees 08/25 continues to do better, no urges to self-harm and passive wish resolved; continues to work hard in 1 1 sessions and attends groups. Screen for ADD and patient has numerous symptoms and history. Will give trial of Adderall. Discussing discharge plans 08/26 very positive response to Adderall trial, feeling brain is much more able to focus and that anxiety is much less. Given patient's reported history with inattention and significant response to Adderall trial, insurance writer agrees to continue this medication as an outpatient; patient's anxiety is significantly less and patient feels in much better control of thoughts and actions which may very well help patient refrain from self-harming behaviors. Patient anxious about discharging home but agrees that is appropriate and they will be able to remain safe; patient also feels able to reach out for help if otherwise. Patient remains without passive wish or any SI; also sleeping well and nightmares remained resolved. Future oriented with plans for moving with partner, returning to work and continuing to engage in outpatient therapy. Patient is not in imminent risk for harm to self or others and appropriate for discharge to the community. Also discussed patient's history of intermittent binge drinking and patient agrees that this is problematic and in the way of treatment and has decided to significantly limit intake. 08/27/21 Discharge today. Clonidine prn given. Lab work reveals bacterial vaginosis/Gardnerella; discussed with patient agrees to start on metronidazole 500 mg b.i.d. for 7 days Plan: Q 5 minute checks for safety Added clonidine and BuSpar to try as PRNs for anxiety since Atarax makes patient tired. Adderall extended release 10 mg Increased Zoloft to 75 mg Start Lamictal 25 mg daily hydroxyzine 5-10 mg TID PRN, prazosin 1 mg HS PRN, and trazodone 50 mg HS PRN. Discontinue trileptal 300 mg; started a month ago and patient has not notice much benefit Pt is requesting Miralax PRN for constipation. Q15 min safety checks, CV Monitor response to medications. Monitor for safety in the milieu. Discharge on stabilization. Patient seen. Chart reviewed. Discussed with team. Obtain collateral contact info?as needed I spent minutes with the patient and/or on the patient floor today, greater than?50% of which was spent counseling/coordinating care. Informed Consent: understands Reason for contiued inpatient stay Substantial Risk for: stable for discharge
== END 2021-08-27 14:45 | disposition home or self-care (01) | DRG 751 ==
LOC: HO.ED 08-20 18:32 → HO.PM5 08-20 18:59
PROVIDERS: Registered Nurse; Admitting Provider Psychiatry & Neurology Psychiatry; Emergency Provider Emergency Medicine; Visit Provider Psychiatry & Neurology Psychiatry
DX: F33.2 Major depressive disorder, recurrent severe without psychotic features (principal); F43.10 Post-traumatic stress disorder, unspecified; F60.3 Borderline personality disorder; F98.8 Other specified behavioral and emotional disorders with onset usually occurring in childhood and adolescence; Z20.822 Contact with and (suspected) exposure to COVID-19; Z91.51 Personal history of suicidal behavior; Z91.010 Allergy to peanuts; Z79.899 Other long term (current) drug therapy
CPT/HCPCS: 36415; 80048; 80051; 80061; 80307; 81001; 82077; 82607; 82746; 83036; 83735; 84439; 84443; 85025; 87480; 87510; 87635; 87660; 99285